=== PATIENT | female | born 1970 | race Caucasian/White ===

== ENCOUNTER 2017-01-09 05:46 | Emergency (ER) | payer OTHER ==
[~2017-01-09] VITALS: Ht 157.5 cm; Wt 74.5 kg
[~2017-01-09 05:46] MED LIST: ATOR20TA38 PO; METF500T4 PO; RANI150T9 PO
[2017-01-09 05:48] VITALS: Ht 157.5 cm; Wt 74.5 kg
--- NOTE | 2017-01-09 06:18 | ERD ---
ER Documentation Chief Complaint Date/Time DATE: 01/09/17 TIME: 06:17 Chief Complaint cough x 2 months HPI 46-year-old female who presents to the emergency room for on and off productive cough for about 2-3 months. Stated that she was seen by her primary care physician 2 weeks ago and prescribed with azithromycin. She also stated that she coughed out phlegm 2 days ago and she saw a streak of blood. At this time she is concerned of her lungs and insisting to have a chest x-ray. She denies chest pain, shoulder pain. She denies chest discomfort during inspiration and during coughing. Denies headache, loss of consciousness, dizziness, blurry vision, changes in vision, photophobia, facial pain, ear pain, throat pain, difficulty swallowing, neck pain, shoulder pain, chest pain, abdominal pain, back pain, loss of appetite, nausea, vomiting, hematochezia, diarrhea, constipation, urinary symptoms, , the possibility of being , bladder and bowel incontinences, extremity weakness, extremity tenderness, numbness or tingling sensation, difficulty walking, recent travel, recent exposure to illness, fever , chills. Allergy: No known drug allergies. PMH: Diabetes, hypertension. Family medical history: LMP: 12/26/2016 A0 Medications: Aspirin, lisinopril, ferrous sulfate. Surgery: Denies. Primary Social History: Not working at this time. Denies smoking, use of alcohol, use of illegal drugs. ROS All systems reviewed and are negative except as per history of present illness. Medications Home Meds Active Scripts Albuterol Sulfate* (Proair HFA*) 8.5 Gm Hfa.aer.ad, 2 PUFF INH Q4, #1 INHALER Prov:MAY PIERCE 01/09/17 Ranitidine Hcl* (Zantac*) 150 Mg Tablet, 150 MG PO BID Y for EPIGASTRIC PAIN, # 30 TAB Prov:MICHELLE KAPLAN DO 07/17/16 Reported Medications Atorvastatin Calcium* (Atorvastatin Calcium*) 20 Mg Tablet, 20 MG PO QHS, #30 TAB 07/17/16 Metformin* (Glucophage*) 500 Mg Tab, 500 MG PO BID, #60 TAB 07/17/16 Discontinued Scripts Albuterol Sulfate* (Proair HFA*) 8.5 Gm Hfa.aer.ad, 2 PUFF INH Q4, #1 INHALER Prov:MAY PIERCE 01/09/17 Allergies Allergies: Coded Allergies: No Known Allergy (Unverified , 03/15/16) PMhx/Soc History of Surgery: Yes (C- section x 2, tubal ligation) Anesthesia Reaction: No Hx Neurological Disorder: No Hx Respiratory Disorders: No Hx Cardiac Disorders: Yes (htn) Hx Psychiatric Problems: No Hx Miscellaneous Medical Probl: Yes (DM) Hx Alcohol Use: No Hx Substance Use: No Hx Tobacco Use: No Physical Exam Vitals Vital Signs Date Time Temp Pulse Resp B/P Pulse Ox O2 Delivery O2 Flow Rate FiO2 01/09/17 05:48 98.7 74 20 139/72 100 Physical Exam CONSTITUTIONAL: Well-appearing; well-nourished. HEAD: Normocephalic; atraumatic. EYES: Conjunctiva clear, sclera non-icteric, EOM intact. PERRL Ears: Hearing intact. EACs clear, TMs non-bulging, non-inflamed, translucent & mobile, ossicles normal appearance, No obstructions, no erythema, no discharges Nose: No obstructions. No polyps. No external lesions. Has mild congestion.. No external lesions, septum and turbinates normal. No rhinorrhea. No discharges. Frontal sinus is non-tender to palpation. Maxillary sinus is non- tender to palpation. MOUTH: Moist mucous membranes, no lesion, no obstructions, no vesicles, no thrush, patent airway Throat: Uvula in midline. Right tonsil is +1 with no erythema, no exudate. Left tonsil is +1 with no erythema, no exudate. Tolerating secretions well. Good gag reflex. Patent airway. Neck: Supple, without lesions, bruits, or adenopathy. No mass. Thyroid non- enlarged and non-tender to palpation. CHEST: Symmetrical chest. Respirations even and not labored. No retractions noted. CARDIOVASCULAR: Normal S1, S2. RRR. No murmurs, gallops. RESPIRATORY: Normal chest excursion with respiration; breath sounds clear and equal bilaterally; no wheezes, rhonchi, or rales. Breathing even and unlabored. Speaking in clear, full, and complete sentences w/ ease. ABDOMEN: Normal bowel sounds normal. Soft, round, non-distended, non-guarding, no tenderness, no rebound, no organomegaly, no masses, no pulsating abdominal mass. No hernia. No peritoneal signs. : No CVA tenderness. BACK: Symmetrical shoulder. Spine is midline without deformity, tenderness. No evidence of trauma or deformity. PELVIS: Stable pelvis. No evidence of trauma or deformity. MUSCULOSKELETAL: Normal gait and station. No misalignment, asymmetry, crepitation, defects, tenderness, masses, effusions, decreased range of motion, instability, atrophy or abnormal strength or tone in the head, neck, spine, ribs , pelvis or extremities. No calf tenderness. NEUROVASCULAR: Distal pulses are present. Pedal pulse are present, equal, and normal. Capillary refills are < 2 seconds. NEUROLOGIC: Alert and oriented x4. Speaks full and clear sentences. Cranial Nerves II-XII normal. Sensation to pain, touch, and proprioception normal. Grossly unremarkable. No neurologic deficits. Romberg test is negative. PSYCHOLOGICAL: The patients mood and manner are appropriate. No hallucinations , delusions. Not SI. Not HI. Has the capacity to decide for self. SKIN: Normal for age and ethnicity; warm; dry; good turgor; no apparent lesions or exudates. No rashes, hives, discoloration. Intact. Procedures/MDM Examination: Please see physical examination. Disease process, medical treatment was explained to the patient and family member. They verbalized understanding and agreed with the diagnostic tests, medical treatment, and follow-up care. Radiology: Chest x-ray. Impression: No radiographic evidence of acute cardiopulmonary disease. Re-evaluation: Patient denies headache, dizziness, blurry vision, chest pain, neck pain, back pain, abdominal pain. Alert oriented 4. Speaks full and clear sentences. Tolerating secretions. No drooling. Patent airway. Respirations even and unlabored. Lung sounds are clear to auscultation. Stated that she feels much better at this time. Consultation: None. Differential diagnosis: Pneumonia versus bronchitis versus upper respiratory infection. Medical decision makin-year-old female who presents to the emergency room for on and off productive cough for about 2-3 months. Stated that she was seen by her primary care physician 2 weeks ago and prescribed with azithromycin. She also stated that she coughed out phlegm 2 days ago and she saw a streak of blood. At this time she is concerned of her lungs and insisting to have a chest x-ray. She denies chest pain, shoulder pain. She denies chest discomfort during inspiration and during coughing. Patient's complaint, patient 's history about her complaint, my physical findings, diagnostic test results, my re-evaluation are consistent with my final diagnosis of upper respiratory infection viral in origin. Medications prescribed are the following: Pro-air. Patient and family member are made aware of the side effects and adverse reactions of the medications prescribed. Instructed on when to seek emergent and medical attention in case allergic/anaphylactic reactions or severe side effects and or adverse reactions to medications. Patient and family member verbalized understanding. Patient instructed Instructed to follow-up with his PCP in 24-48 hours. Patient stated that she will see her primary care provider in the next 24-48 hours. Community resources was also provided. Instructed to Call 911 for chest pain, shortness of breath. Advised to come back here in ED as soon as possible for severity of symptoms which includes but not limited to: any new symptoms; shortness of breath/difficulty of breathing; cardiovascular changes; severe gastrointestinal symptoms; signs and symptoms of bleeding and or infection; signs of compartment syndrome/neurovascular changes; neurological changes/deficits. Patient and family member verbalized understanding. Upon discharge, patient is alert and oriented x 4, speaks full and clear sentences, denies pain, has no neurological deficits, has no neurovascular deficits, difficulty of breathing. Breathing even and unlabored. Lung sounds are clear to auscultation. Not in distress. Appears comfortable. Ambulatory with steady gait. Appears satisfied with care provided here in ED. Departure Diagnosis: Primary Impression: Cough Additional Impressions: Upper respiratory infection Bronchitis Condition: Good Additional Instructions: Patient instructed Instructed to follow-up with his PCP in 24-48 hours. Patient stated that she will see her primary care provider in the next 24-48 hours. Community resources was also provided. Instructed to Call 911 for chest pain, shortness of breath. Advised to come back here in ED as soon as possible for severity of symptoms which includes but not limited to: any new symptoms; shortness of breath/difficulty of breathing; cardiovascular changes; severe gastrointestinal symptoms; signs and symptoms of bleeding and or infection; signs of compartment syndrome/neurovascular changes; neurological changes/deficits. Patient and family member verbalized understanding. MAY PIERCE Jan 09, 2017 06:17
[2017-01-09] MEDS ORDERED: ALBU8.5H3 INH ×2 (07:52→08:04)
--- NOTE | 2017-01-09 07:58 | RADRPT ---
PROCEDURE: XR Chest. CLINICAL INDICATION: Chronic cough TECHNIQUE: PA and lateral views of the chest were obtained. COMPARISON: Chest x-ray dated 07/17/2016 FINDINGS: No focal airspace opacification, pleural effusion or pneumothorax is seen. The cardiomediastinal si lhouette is within normal limits for size. The osseous structures are unremarkable. IMPRESSION: No radiographic evidence of acute cardiopulmonary disease. RPTAT: HH .Emelina Stuart MD, MD Date Time Electronically viewed and signed by .Emelina Stuart MD, MD on 01/09/2017 07:57 .G/
== END 2017-01-09 08:00 | disposition home or self-care (01) ==
LOC: FTE 05:46
DX: R05 Cough (principal); J06.9 Acute upper respiratory infection, unspecified; J40 Bronchitis, not specified as acute or chronic; I10 Essential (primary) hypertension; E11.9 Type 2 diabetes mellitus without complications; Z79.84 Long term (current) use of oral hypoglycemic drugs
CPT/HCPCS: 71020; Z7502

== ENCOUNTER 2017-03-05 19:10 | Emergency (ER) | payer OTHER ==
[~2017-03-05] VITALS: Ht 162.6 cm; Wt 75.0 kg
[~2017-03-05 19:10] MED LIST changes: +ALBU8.5H3 INH
[2017-03-05 19:34] VITALS: Ht 162.6 cm; Wt 75.0 kg
[2017-03-05 20:23] LABS: URINE BLOOD (Dip) POC 2+ (NEGATIVE)
[2017-03-05] MEDS ORDERED: KETOROLAC 30 MG INJ IV STA (20:30)
[2017-03-05 20:49] LABS: ADD SCAN DIFF NO
[2017-03-05 20:52] LABS: BASOPHIL # 0.1 10^3/ul (0.0-0.1); BASOPHILS % 0.8 % (0.0-2.0); EOSINOPHILS # 0.1 10^3/ul (0.0-0.5); EOSINOPHILS % 1.5 % (0.0-7.0); HEMATOCRIT 35.7 % (37.0-47.0); HEMOGLOBIN 11.5 g/dl (12.0-16.0); LYMPHOCYTES # 3.9 10^3/ul (0.8-2.9); LYMPHOCYTES % 40.8 % (15.0-51.0); MEAN CORPUSCULAR HEMOGLOBIN 26.9 pg (29.0-33.0); MEAN CORPUSCULAR HGB CONC 32.2 g/dl (32.0-37.0); MEAN CORPUSCULAR VOLUME 83.4 fl (82.0-101.0); MEAN PLATELET VOLUME 10.3 fl (7.4-10.4); MONOCYTE # 0.5 10^3/ul (0.3-0.9); MONOCYTES % 5.7 % (0.0-11.0); NEUTROPHIL # 4.8 10^3/ul (1.6-7.5); NEUTROPHILS % 50.9 % (39.0-77.0); PLATELET COUNT 325 10^3/UL (140-415); RED BLOOD COUNT 4.28 10^6/ul (4.20-5.40); RED CELL DISTRIBUTION WIDTH 13.9 % (11.5-14.5); WHITE BLOOD COUNT 9.5 10^3/ul (4.8-10.8)
[2017-03-05 21:20] LABS: INR 0.94; PROTIME 12.6 Sec (12.2-14.2)
[2017-03-05 21:21] LABS: PARTIAL THROMBOPLASTIN TIME 28.3 Sec (25.0-35.0)
[2017-03-05] MEDS ORDERED: FER325 PO (21:31)
[2017-03-05] MEDS ORDERED: ASPI-664 PO (21:31)
[2017-03-05] MEDS ORDERED: LISI10TA2 PO (21:31)
[2017-03-05 21:32] LABS: ANION GAP 12 (8-16); BLOOD UREA NITROGEN 14 mg/dl (7-20); CALCIUM 9.5 mg/dl (8.4-10.2); CARBON DIOXIDE 24 mmol/L (21-31); CHLORIDE 104 mmol/L (97-110); CREATININE 0.64 mg/dl (0.44-1.00); GLUCOSE 176 mg/dl (70-220); POTASSIUM 3.9 mmol/L (3.5-5.1); SODIUM 136 mmol/L (135-144)
[2017-03-05] MEDS ORDERED: ATOR40TA68 PO (21:32)
[2017-03-05] MEDS ORDERED: METF1000 PO (21:32)
[2017-03-05] MEDS ORDERED: CHOL20003 PO (21:33)
[2017-03-05] MEDS ORDERED: OMEG1CAP2 PO (21:33)
--- NOTE | 2017-03-05 21:37 | RADRPT ---
PROCEDURE: XR Chest. CLINICAL INDICATION: Chest pain. TECHNIQUE: Portable AP semi erect view of the chest was obtained. COMPARISON: 01/09/2017 FINDINGS: The cardiomediastinal silhouette is within normal limits. The lungs are clear. There is no evidenc e for pleural effusion, pneumothorax or pulmonary vascular congestion. The osseous structures are i ntact with no evidence for acute abnormality. RPTAT:HJJR IMPRESSION: No evidence for acute intrathoracic pathology. Physician Jose Date Time Electronically viewed and signed by Physician Jose on 03/05/2017 21:36 /
[2017-03-05 21:49] LABS: TROPONIN-I < 0.012 ng/ml (0.00-0.12)
--- NOTE | 2017-03-05 21:57 | ERD ---
ER Documentation Chief Complaint Date/Time DATE: 03/05/17 TIME: 21:55 Chief Complaint chest since this morning, dizziness HPI This is a 46-year-old female presents to the emergency for evaluation of chest pain which has been constant for 2 weeks however worse this morning. The patient states is worse with deep inspiration and movement of her trunk. The patient denies any radiation of pain and denies any palpitations associated with this. ROS All systems reviewed and are negative except as per history of present illness. Medications Home Meds Reported Medications Austin-3 Acid Ethyl Esters (Lovaza) 1 Gm Capsule, 1 GM PO BID, CAP 03/05/17 Cholecalciferol (Vitamin D3) (VITAMIN D-3) 2,000 Unit Capsule, 2000 UNIT PO DAILY, CAP 03/05/17 Metformin Hcl* (Metformin Hcl*) 1,000 Mg Tablet, 1000 MG PO WITH BREAKFAST DINNE , #60 TAB 03/05/17 Atorvastatin* (Atorvastatin*) 40 Mg Tablet, 40 MG PO QHS, #30 TAB 03/05/17 Aspirin* (Aspirin* EC) 81 Mg Tablet.dr, 81 MG PO DAILY, TAB 03/05/17 Ferrous Sulfate* (Ferrous Sulfate*) 325 Mg Tabec, 325 MG PO BID, TAB 03/05/17 Lisinopril* (Lisinopril*) 10 Mg Tablet, 10 MG PO DAILY, #30 TAB 03/05/17 Discontinued Reported Medications Atorvastatin Calcium* (Atorvastatin Calcium*) 20 Mg Tablet, 20 MG PO QHS, #30 TAB 07/17/16 Metformin* (Glucophage*) 500 Mg Tab, 500 MG PO BID, #60 TAB 07/17/16 Discontinued Scripts Albuterol Sulfate* (Proair HFA*) 8.5 Gm Hfa.aer.ad, 2 PUFF INH Q4, #1 INHALER Prov:MAY PIERCE 01/09/17 Ranitidine Hcl* (Zantac*) 150 Mg Tablet, 150 MG PO BID Y for EPIGASTRIC PAIN, # 30 TAB Prov:MICHELLE KAPLAN DO 07/17/16 Allergies Allergies: Coded Allergies: No Known Allergy (Unverified , 03/05/17) PMhx/Soc History of Surgery: Yes (C- section x 2, tubal ligation) Anesthesia Reaction: No Hx Neurological Disorder: No Hx Respiratory Disorders: No Hx Cardiac Disorders: Yes (htn, DYSLIPIDEMIA) Hx Psychiatric Problems: No Hx Miscellaneous Medical Probl: Yes (DM) Hx Alcohol Use: No Hx Substance Use: No Hx Tobacco Use: No Smoking Status: Never smoker Physical Exam Vitals Vital Signs Date Time Temp Pulse Resp B/P Pulse Ox O2 Delivery O2 Flow Rate FiO2 03/05/17 19:34 97.8 79 20 138/78 99 Physical Exam INITIAL VITAL SIGNS: Reviewed by me GENERAL: The patient is well developed and appropriate for usual state of health in no apparent distress HEENT: Pupils equal, round, and reactive to light. EOMI. There is no scleral icterus. NECK: C-spine is soft and supple, there is no meningismus. There is no cervical lymphadenopathy. LUNGS: Clear to auscultation bilaterally. There are no rales, wheezes or rhonchi. HEART: Regular rate and rhythm, no murmurs, clicks, rubs or gallops. ABDOMEN: Soft, non-tender, non-distended. There are bowel sounds in all four quadrants. No rebound or guarding. EXTREMITIES: There is no peripheral cyanosis or edema. No focal swelling or erythema. NEUROLOGICAL: The patient moves all four extremities with 5/5 strength. Cranial nerves II - XII are intact. Normal gait. Alert and oriented SKIN: There is no apparent rash or petechiae. Musculoskeletal: Tenderness to palpation of anterior chest wall, no paradoxical chest wall movement HEME/LYMPHATIC: There is no evidence of excessive bruising or lymphedema. PSYCHIATRIC: The patient does not appear anxious or depressed. Result Diagram: 03/05/17202903/05/172029 Results 24 hrs Laboratory Tests Test 03/05/17 20:24 03/05/17 20:30 Bedside Urine pH (LAB) 5.5 Bedside Urine Protein (LAB) Trace Bedside Urine Glucose (UA) Negative Bedside Urine Ketones (LAB) Negative Bedside Urine Blood 2+ Bedside Urine Nitrite (LAB) Negative Bedside Urine Leukocyte Esterase (L Negative White Blood Count 9.510^3/ul Red Blood Count 4.2810^6/ul Hemoglobin 11.5g/dl Hematocrit 35.7% Mean Corpuscular Volume 83.4fl Mean Corpuscular Hemoglobin 26.9pg Mean Corpuscular Hemoglobin Concent 32.2g/dl Red Cell Distribution Width 13.9% Platelet Count 45453^3/UL Mean Platelet Volume 10.3fl Neutrophils % 50.9% Lymphocytes % 40.8% Monocytes % 5.7% Eosinophils % 1.5% Basophils % 0.8% Nucleated Red Blood Cells % 0.0/100WBC Neutrophils # 4.810^3/ul Lymphocytes # 3.910^3/ul Monocytes # 0.510^3/ul Eosinophils # 0.110^3/ul Basophils # 0.110^3/ul Nucleated Red Blood Cells # 0.010^3/ul Prothrombin Time 12.6Sec Prothrombin Time Ratio 1.0 INR International Normalized Ratio 0.94 Activated Partial Thromboplast Time 28.3Sec Sodium Level 136mmol/L Potassium Level 3.9mmol/L Chloride Level 104mmol/L Carbon Dioxide Level 24mmol/L Anion Gap 12 Blood Urea Nitrogen 14mg/dl Creatinine 0.64mg/dl Glucose Level 176mg/dl Calcium Level 9.5mg/dl Troponin I < 0.012ng/ml Current Medications Medications (Trade) Dose Ordered Sig/Eladia Route PRN Reason Start Time Stop Time Status Last Admin Dose Admin Ketorolac Tromethamine (Toradol) 30 mg ONCE STAT IV 03/05/17 20:30 03/05/17 20:31 DC 03/05/17 20:38 Procedures/MDM EKG: Rate/Rhythm: [Normal Sinus Rhythm] QRS, ST, T-waves: [No changes consistent w/ acute ischemia] Impression: [No evidence of ischemia or arrhythmia] Chest X-ray 1V Interpreted by me: Soft Tissue: No acute abnormalities Bones: No acute abnormalities Mediastinum/Cardiac Silhouette/Lungs: [No acute abnormalities] This 46-year-old female presents to the emergency room for evaluation of chest pain. When I evaluated this patient she does have reproducible tenderness to palpation of the anterior chest wall. Patient is hemodynamically stable, not hypoxic, and in no acute distress. I did obtain lab work on this patient including a troponin which is negative. This patient's EKG is nonischemic. This patient has had these complaints for greater than 24 hours at this time and troponin is still negative. I advised this patient she is to follow with her primary care physician to establish care with a ladle puller to do a stress test as an outpatient and she states that she can call her primary care physician tomorrow. The patient was given Toradol with minor relief of her pain , and she will be discharged home with a prescription for Motrin at this time. Differential diagnoses entertained was broad with potential high acuity. Patient has been evaluated for acute myocardial infarction, unstable angina, aortic dissection, pulmonary embolism, other intrathoracic and cardiac concerns. Ultimately the patient's evaluation is nondiagnostic. Based on the patient's lack of risk factors, as well as the patient's clinical, laboratory, and imaging data, the patient appears to be low risk for these high risk causes of chest pain. Departure Diagnosis: Primary Impression: Acute costochondritis Additional Impressions: Chest pain Normocytic anemia Condition: Stable ZEKE MUÑOZ DO March 05, 2017 21:57
[2017-03-05] MEDS ORDERED: IBUP800T25 PO (21:58)
[2017-03-05 22:11] VITALS: BP 126/70; PULSE 67; RESP 20; TEMP 97.8
== END 2017-03-05 22:14 | disposition home or self-care (01) ==
LOC: E/R 19:10
DX: M94.0 Chondrocostal junction syndrome [Tietze] (principal); D64.9 Anemia, unspecified; E11.9 Type 2 diabetes mellitus without complications; I10 Essential (primary) hypertension; R07.89 Other chest pain; Z79.82 Long term (current) use of aspirin; Z79.84 Long term (current) use of oral hypoglycemic drugs
CPT/HCPCS: 36415; 71010; 80048; 81003; 84484; 85025; 85610; 85730; 93005; 96374; J1885; Z7502